=== PATIENT | female | born 1945 ===

== ENCOUNTER 2021-01-15 14:21 | Emergency (ER) | payer MEDICARE ==
[2021-01-15 15:37] LABS: BASOPHILS % (AUTO) 0.4 %; EOSINOPHILS # (AUTO) 0.1 10^3/uL (0.0-0.7); EOSINOPHILS % (AUTO) 0.6 %; HCT - HEMATOCRIT 40.6 % (37.0-47.0); HGB - HEMOGLOBIN 13.1 g/dL (12.0-16.0); LYMPHOCYTES # (AUTO) 1.4 10^3/uL (1.5-3.5); LYMPHOCYTES % (AUTO) 16.1 %; MEAN CORPUSCULAR HEMOGLOBIN 29.4 pg (27.0-31.0); MEAN CORPUSCULAR HGB CONC 32.3 g/dL (32.0-36.0); MEAN PLATELET VOLUME 10.3 fL (7.9-10.8); MONOCYTES # (AUTO) 0.4 10^3/uL (0.0-1.0); MONOCYTES % (AUTO) 4.9 %; NEUTROPHILS # (AUTO) 6.9 10^3/uL (1.5-6.6); NEUTROPHILS % (AUTO) 77.7 %; PLT - PLATELET COUNT 191 10^3/uL (130-450); RED BLOOD COUNT 4.46 10^6/uL (4.20-5.40); RED CELL DISTRIBUTION WIDTH 12.7 % (12.0-15.0); WHITE BLOOD COUNT 8.9 x10^3/uL (4.8-10.8)
--- NOTE | 2021-01-15 15:43 | ED Physician Documentation ---
PD HPI LOWER EXT INJURY - Stated complaint Stated Complaint: R LEG PX - Chief complaint Chief Complaint: Ext Problem - History obtained from History obtained from: Patient - History of Present Illness PD HPI LOW EXT INJURY LOCATION: Right - Additional information Additional information: 75-year-old woman with history of hypertension presents with leg pain and s yncope. Yesterday around noon she had a slip and fall. She did not feel like she was injured at the time and felt like it was inconsequential and went about her day normal health. Then awoke at midnight last night, 12 hours later, with severe posterior leg pain from the right calf down to the ankle. She was walking around trying to work it out feeling like it was a charley horse but also felt like the leg might give way. Then at 1 AM had a syncopal episode with unknown length of time. Has not been dizzy since. There is no associated chest pain or trouble breathing. Review of Systems Constitutional: denies: Fever, Chills Eyes: reports: Reviewed and negative Ears: reports: Reviewed and negative Nose: reports: Reviewed and negative Throat: reports: Reviewed and negative Cardiac: reports: Reviewed and negative Respiratory: reports: Reviewed and negative PD PAST MEDICAL HISTORY - Present Medications Home Medications: Ambulatory Orders Medication Instructions Recorded Confirmed HYDROcod/ACETAM 5/325 [Dorset 5/325] 1 - 2 tab PO Q6H PRN #15 tablet 01/15/21 - Allergies Allergies/Adverse Reactions: Allergies Allergy/AdvReac Type Severity Reaction Status Date / Time No Known Drug Allergies Allergy Verified 01/15/21 14:44 PD ED PE NORMAL - Vitals Vital signs reviewed: Yes - General General: Alert and oriented X 3, No acute distress - HEENT HEENT: PERRL, EOMI - Neck Neck: Supple, no meningeal sign, No bony TTP - Cardiac Cardiac: RRR, No murmur - Respiratory Respiratory: No respiratory distress, Clear bilaterally - Abdomen Abdomen: Normal bowel sounds, Soft, Non tender - Back Back: No CVA TTP, No spinal TTP - Derm Derm: Normal color, Warm and dry - Extremities Extremities: Other (Slightly hyperreflexic in both lower extremities but it seems symmetric. Otherwise equal sensation and strength throughout the lower extremities with mild tenderness of the right calf but no tenderness above the knee. Normal pedal pulses.) - Neuro Neuro: Alert and oriented X 3, Normal speech Results - Vitals Vitals: Vital Signs - 24 hr 01/15/21 14:33 Temperature 36.8 C Heart Rate 86 Respiratory 16 Rate Blood Pressure 112/83 H O2 Saturation 97 Oxygen O2 Source Room air - EKG (time done) 1446 Rate: Rate (enter#) (81) Rhythm: NSR Underwood: Normal QRS: Low voltage Ischemia: Non specific changes - Labs Labs: Laboratory Tests 01/15/21 01/15/21 01/15/21 15:29 15:29 15:29 WBC 8.9 RBC 4.46 Hgb 13.1 Hct 40.6 MCV 91.0 MCH 29.4 MCHC 32.3 RDW 12.7 Plt Count 191 MPV 10.3 Neut # (Auto) 6.9 H Lymph # (Auto) 1.4 L Rankin # (Auto) 0.4 Eos # (Auto) 0.1 Baso # (Auto) 0.0 Absolute Nucleated RBC 0.00 Nucleated RBC % 0.0 D-Dimer 442.0 H Sodium 136 Potassium 3.8 Chloride 101 Carbon Dioxide 24 Anion Gap 11.0 BUN 20 Creatinine 0.8 Estimated GFR (MDRD) 70 L Glucose 189 H Calcium 8.9 Troponin I High Sens 01/15/21 15:29 WBC RBC Hgb Hct MCV MCH MCHC RDW Plt Count MPV Neut # (Auto) Lymph # (Auto) Rankin # (Auto) Eos # (Auto) Baso # (Auto) Absolute Nucleated RBC Nucleated RBC % D-Dimer Sodium Potassium Chloride Carbon Dioxide Anion Gap BUN Creatinine Estimated GFR (MDRD) Glucose Calcium Troponin I High Sens 3.2 PD MEDICAL DECISION MAKING - ED course ED course: She fell yesterday, but did not have immediate pain, then overnight her leg started hurting a lot and had a syncopal episode. Initially this was concerning for DVT with PE causing syncope but subsequently we noted that she had a fracture of her fibula which could cause everything. D-dimer had already been ordered and this was positive, even for age-adjusted. This was discussed with her noting that if I had known that her leg was broken initially I probably would not of ordered a D-dimer since we had a diagnosis. That said I recommended CT angiography of the chest and ultrasound of the leg to rule out thromboembolic disease and she declined. Case was discussed by phone with Dr. Cazares, our on-call orthopedist, she does not think she will be able to be nonweightbearing and as such he agreed that is probably okay to go in a boot and weightbearing as tolerated pending follow-up. Departure - Departure Disposition: 01 Home, Self Care Clinical Impression: Pain in extremity, Fibula fracture Condition: Good Record reviewed to determine appropriate education?: Yes Instructions: ED Fx Lower Ext Prescriptions: HYDROcod/ACETAM 5/325 [Dorset 5/325] 1 - 2 tab PO Q6H PRN #15 tablet PRN Reason: Pain Comments: Prescription sent electronically to [facility] Follow-up with an orthopedist closer to home within a week, call over the next few days for an appointment. Our orthopedist felt it was okay for you to be weightbearing as tolerated pending that follow-up. I am prescribing a short course of narcotic pain medication for you. These are potentially dangerous and addictive medications that should be used carefully. These medications may constipate you. Take an [id number] stool softener (docusate) twice daily with plenty of water while taking these medications. If you go 24 hours without a bowel movement, take [id number] miralax, per package instructions. Do not drink or drive while taking these medications. If you received narcotic or sedating medications while in the emergency department, do not drive for 24 hours. Store this medication in a safe, secure place and out of reach of children. It is a violation of federal law to give or sell this medication to another person or to use in a manner other than prescribed. The ED will not refill narcotic prescriptions, including prescriptions lost or stolen. To dispose of unwanted medications: 1. [facility] at [address] in [place] has a medication drop box. They accept prescription medications (in pill form) Friday through Friday 9:00 a.m. to 5:00 p.m. 2. [facility] [employer] accepts prescription medications (in pill form only) for disposal year round. Call for more information. 3. Contact the [facility] for the next [facility] sponsored prescription drug collection event. , [phone], or [phone]; Note that many narcotic pain relievers also contain Tylenol/acetaminophen. Please ensure that your total dose of acetaminophen from all sources does not exceed 3 g (3000 mg) per day.
--- NOTE | 2021-01-15 15:48 | XRAY Report ---
PROCEDURE: Tib/Fib RT INDICATIONS: Trauma TECHNIQUE: 2 views of the tibia and fibula were acquired. COMPARISON: None. FINDINGS: Bones: There is a mildly displaced fracture of the proximal fibular shaft. The tibia appears intact. No suspicious bony lesions. Soft tissues: No suspicious soft tissue calcifications or masses. IMPRESSION: 1. Mildly displaced fracture of the proximal fibular shaft. Reviewed by: Jaskaran Meza MD on 01/15/2021 3:46 PM PDT Approved by: Jaskaran Meza MD on 01/15/2021 3:46 PM PDT Station ID: [id number]
[2021-01-15] MEDS ORDERED: IOVERSOL 320 100 ML VIAL IVP ONE (16:21)
[2021-01-15 16:22] LABS: CALCIUM 8.9 mg/dL (8.5-10.3); CREATININE 0.8 mg/dL (0.4-1.0); POTASSIUM 3.8 mmol/L (3.5-5.0)
[2021-01-15 16:57] VITALS: BP 104/86
== END 2021-01-15 16:56 | disposition home or self-care (01) ==
LOC: ED 14:21
DX: S82.491A Other fracture of shaft of right fibula, initial encounter for closed fracture (principal); W01.0XXA Fall on same level from slipping, tripping and stumbling without subsequent striking against object, initial encounter; R55 Syncope and collapse; R79.89 Other specified abnormal findings of blood chemistry; I10 Essential (primary) hypertension
CPT/HCPCS: 36415; 80048; 84484; 85025; 85379; 93005; 99284